=== PATIENT | male | born 1950 | race Hispanic/Latino ===

== ENCOUNTER 2021-04-16 09:55 | Emergency (ER) | payer MEDICARE ==
[~2021-04-16] VITALS: Ht 177.8 cm; Wt 106.6 kg
[2021-04-16] MEDS ORDERED: BACI1PAC19 TP (11:20)
[2021-04-16 11:30] VITALS: BP 135/73
== END 2021-04-16 11:31 | disposition home or self-care (01) ==
LOC: EDH 09:55
DX: S80.921A Unspecified superficial injury of right lower leg, initial encounter (principal); L03.115 Cellulitis of right lower limb; E11.40 Type 2 diabetes mellitus with diabetic neuropathy, unspecified; Z88.2 Allergy status to sulfonamides; X58.XXXA Exposure to other specified factors, initial encounter; Y93.89 Activity, other specified; Y92.89 Other specified places as the place of occurrence of the external cause; Y99.8 Other external cause status